=== PATIENT | female | born 1980 | race Caucasian/White ===

== ENCOUNTER 2017-03-10 08:36 | Emergency (ER) | payer OTHER ==
[2017-03-10 09:27] VITALS: BP 124/74
--- NOTE | 2017-03-10 10:24 | UC ---
General HPI - HPI Summary HPI Summary: complaint of being bit by a bug in the garden yesterday on her forehead had a itchy red lump yesterday this morning swelling in her foerhead has increased and is painful took some benadryl without relief slight headache denies fever last tetanus 2005 - History of Current Complaint Chief Complaint: UCSkin Stated Complaint: BUG BITE REACTION Time Seen by Provider: 03/10/17 10:17 Hx Obtained From: Patient - Allergy/Home Medications Allergies/Adverse Reactions: Allergies Allergy/AdvReac Type Severity Reaction Status Date / Time No Known Allergies Allergy Verified 01/08/16 15:37 PMH/Surg Hx/FS Hx/Imm Hx Previously Healthy: Yes Endocrine History Of: Denies: Diabetes, Thyroid Disease, Hyperthyroidism, Hypothyroidism, Dyslipidemia Cardiovascular History Of: Denies: Cardiac Disorders, Hypertension, Pacemaker/ICD, Myocardial Infarction , Congestive Heart Failure, Atrial Fibrillation, Deep Vein Thrombosis, Bleeding Disorders Respiratory History Of: Denies: COPD, Asthma, Bronchitis, Pneumonia, Pulmonary Embolism GI/ History Of: Denies: Gastroesophageal Reflux, Ulcer, Gastrointestinal Bleed, Gall Bladder Disease, Kidney Stones, Diverticulitis, Renal Disease, Urosepsis Neurological History Of: Denies: TIA, CVA, Dementia, Seizures, Migraine Psychological History Of: Denies: Anxiety, Depression, Bipolar Disorder, Schizophrenia, Post Traumatic Stress Disorder Cancer History Of: Denies: Lung Cancer, Colorectal Cancer, Breast Cancer, Prostate Cancer, Cervical Cancer Other History Of: Negative For: HIV, Hepatitis B, Hepatitis C, Anticoagulant Therapy - Surgical History Surgical History: Yes Surgery Procedure, Year, and Place: breast surgery. choley. vascular surgery R arm - Family History Known Family History: Negative: Cardiac Disease, Hypertension, Diabetes - Social History Occupation: Unemployed Lives: With Family Alcohol Use: None Substance Use Type: None Smoking Status (MU): Heavy Every Day Tobacco Smoker Type: Cigarettes Amount Used/How Often: 1 PPD Household Exposure Type: Cigarettes Cessation Counseling: Patient Advised to Stop Review of Systems Constitutional: Negative Skin: Other - swelkling in foerhead Eyes: Negative ENT: Negative Respiratory: Negative Cardiovascular: Negative Gastrointestinal: Negative Genitourinary: Negative Motor: Negative Neurovascular: Negative Musculoskeletal: Negative Neurological: Headache Psychological: Negative All Other Systems Reviewed And Are Negative: Yes Physical Exam Triage Information Reviewed: Yes Appearance: No Pain Distress, Well-Nourished Vital Signs: Initial Vital Signs Temp 98.3 F 03/10/17 09:23 Pulse 62 03/10/17 09:23 Resp 16 03/10/17 09:23 BP 124/74 03/10/17 09:23 Pulse Ox 100 03/10/17 09:23 Vital Signs Reviewed: Yes Eyes: Positive: Conjunctiva Clear ENT: Positive: Pharynx normal, TMs normal Neck: Positive: No Lymphadenopathy Respiratory: Positive: Lungs clear, Normal breath sounds, No respiratory distress Cardiovascular: Positive: RRR, No Murmur, Pulses Normal Abdomen Description: Positive: Nontender, Soft Bowel Sounds: Positive: Present Musculoskeletal: Positive: No Edema Neurological: Positive: Alert Psychological Exam: Normal Skin: Positive: Other - forehead- 4x3cm area of erythema- warm to touch Course/Dx - Course Course Of Treatment: exam completed. will start bactrim and give tetanus. has followup with PCP tomorrow - Differential Dx - Multi-Symptom Provider Diagnoses: cellultis Discharge - Discharge Plan Condition: Stable Disposition: HOME Prescriptions: Sulfamethox/Trimethoprim DS* [Bactrim DS 800/160 TAB*] 1 tab PO BID #14 tab Patient Education Materials: Cellulitis (ED) Referrals: No Primary Care Phys,NOPCP [Primary Care Provider] - eVra Simpson MD [Medical Doctor] - Additional Instructions: Please take antibiotic as directed Increase fluids and rest Take acetaminophen or ibuprofen for fever or pain If area of redness or pain increases or you get a fever please see you primary care provider or urgent care Please review your discharge instructions. If your symptoms do not improve please call your primary care provider or return to urgent care. Your blood pressure is pre-hypertensive reading. Please contact your primary care provider within 1 day -4 weeks for further evaluation
[2017-03-10] MEDS ORDERED: Tetan/Diph/Pertus SYR(Tdap)* 0.5 ML SYR(BOOSTRIX) use SYR IM ONE (10:26)
== END 2017-03-10 10:32 | disposition home or self-care (01) ==
LOC: UCEAST 08:36
DX: L03.211 Cellulitis of face (principal); F17.210 Nicotine dependence, cigarettes, uncomplicated
CPT/HCPCS: 90471; 90715; 99212; G0463

== ENCOUNTER 2019-01-03 12:03 | Emergency (ER) | payer OTHER ==
[2019-01-03 12:14] VITALS: BP 140/87
--- NOTE | 2019-01-03 12:32 | UC ---
Back Pain HPI - HPI Summary HPI Summary: Patient is a 38 year old , who present today to the urgent care with low back pain for past 2 days. She reports that she picked water at work on January 01 at around 2 PM and that started her pain. The following day she tried to lift the garbage for her neighbor and that made it even worse. Was not able to sleep at all last night She took 200 mg of ibuprofen but without much relief. She does have a history of prior low back pain intermittently for a long time and had an episode of sciatica on the left side 3 weeks ago which has resolved completely and this episode does not feel like any sciatica-like symptoms. She has never seen anyone for her back pain in the past. Her pain is localized in the mid lower back, denies any radiation down her leg. Denies any numbness , tingling , incontinence, saddle anesthesia , motor or sensory disturbance. - History of Current Complaint Chief Complaint: UCBackPain Stated Complaint: BACK PAIN Time Seen by Provider: 01/03/19 12:14 Hx Obtained From: Patient Hx Last Menstrual Period: now ?: No - LMP 6 days ago Pain Intensity: 7 - Allergies/Home Medications Allergies/Adverse Reactions: Allergies Allergy/AdvReac Type Severity Reaction Status Date / Time No Known Allergies Allergy Verified 01/03/19 12:14 PMH/Surg Hx/FS Hx/Imm Hx - Additional Past Medical History Additional PMH: Back pain Previously Healthy: Yes Other History Of: Negative For: HIV, Hepatitis B, Hepatitis C, Anticoagulant Therapy - Surgical History Surgical History: Yes Surgery Procedure, Year, and Place: Breast surgery x 3. Gallbladder. Vascular surgery Right arm - Family History Known Family History: Negative: Cardiac Disease, Hypertension, Diabetes - Social History Alcohol Use: None Substance Use Type: None Smoking Status (MU): Heavy Every Day Tobacco Smoker Type: Cigarettes Amount Used/How Often: 1 PPD Household Exposure Type: Cigarettes Review of Systems All Other Systems Reviewed And Are Negative: Yes Constitutional: Positive: Negative Skin: Positive: Negative Eyes: Positive: Negative ENT: Positive: Negative Respiratory: Positive: Negative Cardiovascular: Positive: Negative Gastrointestinal: Positive: Negative Genitourinary: Positive: Negative Motor: Positive: Negative Neurovascular: Positive: Negative Musculoskeletal: Positive: Arthralgia - Lumbar spine, Decreased ROM - Spine, Myalgia - Low back Neurological: Positive: Negative Psychological: Positive: Negative Is Patient Immunocompromised?: No Physical Exam - Summary Physical Exam Summary: Physical Exam: Const: Appears well. No signs of apparent distress present. Alert and oriented x 3. Musculo: Walks with a cautious gait Head/Face: Atraumatic, normocephalic on inspection. Eyes: EOMI and PERRLA in both eyes. Conjunctivae clear. No discharge noted ENT: Hearing normal CVS: Regular rate and Rhythm, S1S2 normal , no murmurs identified. Extremities: Peripheral circulation is grossly normal. Pulses 2+ Abdomen : Soft non tender , nondistended , Bowel sounds present . No guarding , rebound tenderness or rigidity noted. Skin: No lesions or rash located on the upper extremities or on the lower extremities. Neuro: Cranial nerves II to XII intact, motor and sensory intact. DTR Intact bilaterally. Mood is normal. Affect is normal. Hip/ Spine: Spine: There is tenderness to palpation in midline at L3-L4 and L4-L5. There is no paraspinal tenderness noted bilaterally. Stability: No obvious instability. Strength: 5/5 ROM: Limited and painful range of motion in all planes Special Tests: Straight leg raise could not be performed that she cannot lay down operatively. Slump test negative bilaterally. Hip: Insp/Palp: Normal to inspection and palpation. Strength: 5/5 bilaterally. Normal muscle tone bilaterally. ROM: Bilateral hips: full ROM Neuro: Sensation intact to light touch. Motor and sensory intact. Reflexes: Left DTR's are intact. Right DTR's are intact. Toes downgoing. Coordination normal. Distal pulses intact. Triage Information Reviewed: Yes Vital Signs: Initial Vital Signs Temp 98.7 F 01/03/19 12:11 Pulse 68 01/03/19 12:11 Resp 12 01/03/19 12:11 BP 140/87 01/03/19 12:11 Pulse Ox 98 01/03/19 12:11 Vital Signs Reviewed: Yes Diagnostics - Radiology No standard instances Radiology Interpretation Completed By: Radiologist - Xrays Lumbar spine: facet osteoarthritis most pronounced at L4-L5 and L5-S1 There is loss of intervertebral disc height most pronounced at the thoracolumbar junction at L5- S1.IMPRESSION: DEGENERATIVE DISC DISEASE AND OSTEOARTHRITIS MOST PRONOUNCED ALONG THE LOWER LUMBAR SPINE AND THORACOLUMBAR JUNCTION Back Pain Course/Dx - Course Course Of Treatment: During the visit today, we obtained lumbar spine x-rays:Xrays Lumbar spine: facet osteoarthritis most pronounced at L4-L5 and L5-S1 There is loss of intervertebral disc height most pronounced at the thoracolumbar junction at L5- S1.IMPRESSION: DEGENERATIVE DISC DISEASE AND OSTEOARTHRITIS MOST PRONOUNCED ALONG THE LOWER LUMBAR SPINE AND THORACOLUMBAR JUNCTION We discussed the findings which are consistent with osteoarthritis / degenerative changes flareup. No red flags to indicate any disc injury. She was given 1 dose of ibuprofen here. . I will prescribe the pain medication and muscle relaxant to the pharmacy . She will follow with her primary care doctor within a week. She understands that she needs physical therapy and we'll get the prescription from her primary care doctor. Patient expressed understanding . - Differential Dx/Diagnosis Provider Diagnosis: Osteoarthritis of lumbar spine, Low back strain Discharge - Sign-Out/Discharge Documenting (check all that apply): Patient Departure All imaging exams completed and their final reports reviewed: Yes - Discharge Plan Condition: Stable Disposition: HOME Prescriptions: Cyclobenzaprine TAB* [Flexeril 10 MG TAB*] 10 mg PO BID PRN 10 Days #20 tab MDD 2 PRN Reason: Spasms Meloxicam 7.5 mg PO BID PRN 15 Days #30 tablet MDD 2 tab PRN Reason: Pain Patient Education Materials: Low Back Strain (ED), Core Strengthening Exercises (GEN), Lower Back Exercises (ED) Referrals: No Primary Care Phys,NOPCP [Primary Care Provider] - Additional Instructions: Please start taking the medication as prescribed to the pharmacy for pain control. Stay active, avoid complete bedrest Follow up with your primary care doctor in 1 week at [facility]. Patients blood pressure slightly high in Urgent care today , plan follow up with PCP for better control Return to Urgent care / ER if symptoms get worse. - Billing Disposition and Condition Condition: STABLE Disposition: Home
[2019-01-03] MEDS ORDERED: Ketorolac INJ* 30 MG/ML 1 ML VIAL IM ONE (12:42)
[2019-01-03] MEDS ORDERED: Ibuprofen TAB* 600 MG PO ONE (13:10)
== END 2019-01-03 13:51 | disposition home or self-care (01) ==
LOC: UCEAST 12:03
DX: M47.896 Other spondylosis, lumbar region (principal); S39.012A Strain of muscle, fascia and tendon of lower back, initial encounter; F17.210 Nicotine dependence, cigarettes, uncomplicated; X58.XXXA Exposure to other specified factors, initial encounter; Y92.9 Unspecified place or not applicable; Y99.0 Civilian activity done for income or pay
CPT/HCPCS: 72110; 99212; A9270-GY; G0463; J1885

== ENCOUNTER 2019-07-28 09:57 | Emergency (ER) | payer OTHER ==
[2019-07-28 10:07] VITALS: BP 121/73
--- NOTE | 2019-07-28 10:46 | UC ---
FLU HPI - HPI Summary HPI Summary: Patient is a 39yo female presenting with cough, nasal congestion, and body aches x4 days. States her symptoms have only worsened since onset. Notes ear pressure, sore throat, and productive cough. States her neck and shoulders ache and her "legs feel like jelly." Denies SOB and wheezing. Denies n/v/d and abdominal pain. Notes chills and subjective fevers. Notes ill contacts where she works at [employer]. - History of Current Complaint Chief Complaint: UCRespiratory Stated Complaint: RESP ISSUE COUGH BODYACHES Hx Obtained From: Patient Hx Last Menstrual Period: 07/04/19 Onset/Duration: Gradual Onset, Lasting Days Severity Currently: Mild Severity Initially: Moderate Pain Intensity: 6 Pain Scale Used: 0-10 Numeric - Allergy/Home Medications Allergies/Adverse Reactions: Allergies Allergy/AdvReac Type Severity Reaction Status Date / Time No Known Allergies Allergy Verified 07/28/19 10:07 Home Medications: Home Medications NK [No Home Medications Reported] 07/28/19 [History Confirmed 07/28/19] PMH/Surg Hx/FS Hx/Imm Hx Other History Of: Negative For: HIV, Hepatitis B, Hepatitis C, Anticoagulant Therapy - Surgical History Surgical History: Yes Surgery Procedure, Year, and Place: Breast surgery x 3. Gallbladder. Vascular surgery Right arm - Family History Known Family History: Negative: Cardiac Disease, Hypertension, Diabetes - Social History Alcohol Use: None Substance Use Type: None Smoking Status (MU): Heavy Every Day Tobacco Smoker Type: Cigarettes Amount Used/How Often: 1 PPD Household Exposure Type: Cigarettes Review of Systems All Other Systems Reviewed And Are Negative: Yes Constitutional: Positive: Fever, Chills, Fatigue Skin: Positive: Negative Eyes: Positive: Eye Redness ENT: Positive: Sore Throat, Ear Ache, Sinus Congestion Respiratory: Positive: Cough. Negative: Shortness Of Breath Cardiovascular: Positive: Negative. Negative: Palpitations, Chest Pain Gastrointestinal: Positive: Negative. Negative: Abdominal Pain, Vomiting, Diarrhea, Nausea Motor: Positive: Negative Neurovascular: Positive: Negative Musculoskeletal: Positive: Negative, Arthralgia, Myalgia. Negative: Decreased ROM, Edema Neurological: Positive: Headache. Negative: Paresthesia, Numbness Physical Exam Triage Information Reviewed: Yes Appearance: No Pain Distress, Well-Nourished, Ill-Appearing Vital Signs: Initial Vital Signs Temp 98 F 07/28/19 10:03 Pulse 70 07/28/19 10:03 Resp 17 07/28/19 10:03 BP 121/73 07/28/19 10:03 Pulse Ox 100 07/28/19 10:03 Lab Results 07/28/19 Range/Units 10:42 Group A Strep Rapid Negative (Negative) Lab Results 07/28/19 07/28/19 Range/Units 10:42 10:44 Influenza A (Rapid) Negative (Negative) Influenza B (Rapid) Negative (Negative) Group A Strep Rapid Negative (Negative) Vital Signs Reviewed: Yes Eyes: Positive: Conjunctiva Inflamed ENT: Positive: Hearing grossly normal, Pharyngeal erythema, Nasal congestion, TMs normal, Tonsillar swelling, Uvula midline. Negative: Nasal drainage, TM bulging, TM dull, TM red, Tonsillar exudate, Trismus, Muffled voice, Hoarse voice, Sinus tenderness Neck exam: Normal Neck: Positive: Supple, Nontender, No Lymphadenopathy Respiratory Exam: Normal Respiratory: Positive: Lungs clear, Normal breath sounds, No respiratory distress, No accessory muscle use. Negative: Crackles, Rhonchi, Stridor, Wheezing Cardiovascular Exam: Normal Cardiovascular: Positive: RRR Neurological: Positive: Alert Psychological: Positive: Age Appropriate Behavior Skin Exam: Normal Flu Course/Dx - Course Course Of Treatment: Discussed negative strep and flu tests with the patient and that her symptoms are most likely of viral etiology. Instructed patient to continue symptomatic treatment with otc cold medications. Instructed her to get plenty of rest and fluids and to follow up with PCP if symptoms persist. Patient voiced understanding and agreed to the treatment plan. - Differential Dx/Diagnosis Provider Diagnosis: Viral syndrome Discharge ED - Sign-Out/Discharge Documenting (check all that apply): Patient Departure All imaging exams completed and their final reports reviewed: No Studies - Discharge Plan Condition: Stable Disposition: HOME Referrals: Vera Simpson MD [Primary Care Provider] - If Needed Additional Instructions: As discussed, your rapid strep and flu tests were negative today. You may take mucinex as prescribed to help reduce your mucus production. You may continue to take over the counter cough and cold medications for symptomatic relief. You may take ibuprofen as directed for pain relief. Get plenty of rest and fluids. Return or follow up with your primary care doctor if your symptoms worsen or do not resolve within 7 days. - Billing Disposition and Condition Condition: STABLE Disposition: Home
[2019-07-28 10:58] LABS: Influenza A Molecular NEGATIVE (Negative); Influenza B Molecular NEGATIVE (Negative)
== END 2019-07-28 11:13 | disposition home or self-care (01) ==
LOC: UCEAST 09:57
DX: B34.9 Viral infection, unspecified (principal); F17.210 Nicotine dependence, cigarettes, uncomplicated
CPT/HCPCS: 87651; 99211; G0463

== ENCOUNTER 2019-08-14 16:23 | Emergency (ER) | payer OTHER ==
[2019-08-14 16:37] VITALS: BP 130/74
--- NOTE | 2019-08-14 16:59 | UC ---
Throat Pain/Nasal Nas HPI - HPI Summary HPI Summary: 39 y/o female presents to the urgent care c/o nasal congestion w/ now green nasal discharge, moderate PND for the past 3 weeks. Pt reports symptoms started w/the common cold and has worsen w/ the days. Now w/ a productive cough w/ green phlegm. Worse at night time. She has been taken Mucinex and other OTC decongestants w/o any improvement. Symptoms worsen this past week w/ sore throat and she noticed some white spots on her throat. Her daughter DX 3 days ago w/ strep pharyngitis. She has been coughing so much that she feels some "bumps" in her throat. Pain w/ swallowing is 5/10 associated w/ sinus pain and B /L ear pressure. Pt denies fever, SOB, wheezing, chest pain, abdominal pain, dizziness, N/V/D. - History of Current Complaint Chief Complaint: UCRespiratory Stated Complaint: ST Time Seen by Provider: 08/14/19 16:58 Hx Obtained From: Patient Hx Last Menstrual Period: one week ago ?: No Onset/Duration: Gradual Onset, Lasting Weeks - 3 weeks nasal congestion w/ green nasal sicharge w/ cough, Still Present, Worse Since - 1 week Severity: Moderate Pain Intensity: 4 - sore throat and sinus pain Pain Scale Used: 0-10 Numeric Cough: Sputum Appears - green Associated Signs & Symptoms: Positive: Sinus Discomfort, Nasal Discharge - green. Negative: Dysphagia, Wheezing, Fever, Rash - Epiglottits Risk Factors Epiglottis Risk Factors: Negative - Allergies/Home Medications Allergies/Adverse Reactions: Allergies Allergy/AdvReac Type Severity Reaction Status Date / Time No Known Allergies Allergy Verified 08/14/19 16:37 Home Medications: Home Medications Ibuprofen 400 mg PO ONCE PRN 08/14/19 [History Confirmed 08/14/19] PMH/Surg Hx/FS Hx/Imm Hx Previously Healthy: Yes - Pt denies PMHX Other History Of: Negative For: HIV, Hepatitis B, Hepatitis C, Anticoagulant Therapy - Surgical History Surgical History: Yes Surgery Procedure, Year, and Place: Breast surgery x 3. Gallbladder. Vascular surgery Right arm - Family History Known Family History: Positive: None - Pt denies PMHX Negative: Cardiac Disease, Hypertension, Diabetes - Social History Occupation: Employed Full-time Lives: With Family Alcohol Use: None Substance Use Type: None Smoking Status (MU): Heavy Every Day Tobacco Smoker Type: Cigarettes Amount Used/How Often: 1/2 PPD Household Exposure Type: Cigarettes Review of Systems All Other Systems Reviewed And Are Negative: Yes Constitutional: Positive: Negative Skin: Positive: Negative Eyes: Positive: Negative ENT: Positive: Sore Throat, Nasal Discharge - green, Sinus Congestion, Sinus Pain/Tenderness, Other - moderate green PND Respiratory: Positive: Cough - productive Cardiovascular: Positive: Negative Gastrointestinal: Positive: Negative Genitourinary: Positive: Negative Motor: Positive: Negative Neurovascular: Positive: Negative Neurological: Positive: Negative Psychological: Positive: Negative Is Patient Immunocompromised?: No Physical Exam - Summary Physical Exam Summary: Vitals: reviewed General: Well developed, well-nourished female patient with NAD. Head and face: Normocephalic and atraumatic, Positive tenderness over the frontal and maxillary sinuses.. Eyes: PERRLA, EOMI x 2. Normal conjunctiva. No eye discharge. ENT: Ears and TM with normal limits. Nose: edematous and erythematous nasal mucosa with with yellowish discharge and erythematous mucosa. Pharynx with erythema, no exudate. yellowish PND Neck: Supple, no JVD, no carotid bruits and no lymphadenopathy. Lungs: clear, no rales, no rhonchi, no wheezes. CVS: RRR, S1 and S2 present no murmurs or gallops appreciated. Abdomen: soft nontender with positive bowel sounds. Extremities: no edema noted. Neuro: WNL. Skin: warm and dry Triage Information Reviewed: Yes Vital Signs: Initial Vital Signs Temp 97.8 F 08/14/19 16:32 Pulse 67 08/14/19 16:32 Resp 18 08/14/19 16:32 BP 130/74 08/14/19 16:32 Pulse Ox 100 08/14/19 16:32 Throat Pain/Nasal Course/Dx - Course Course Of Treatment: 39 y/o female presents to the urgent care c/o nasal congestion w/ now green nasal discharge, moderate PND for the past 3 weeks. Pt reports symptoms started w/the common cold and has worsen w/ the days. Now w/ a productive cough w/ green phlegm. Worse at night time. She has been taken Mucinex and other OTC decongestants w/o any improvement. Symptoms worsen this past week w/ sore throat and she noticed some white spots on her throat. Her daughter DX 3 days ago w/ strep pharyngitis. She has been coughing so much that she feels some "bumps" in her throat. Pain w/ swallowing is 5/10 associated w/ sinus pain and B /L ear pressure. Pt denies fever, SOB, wheezing, chest pain, abdominal pain, dizziness, N/V/D. Hx obtained. Pt w/ acute bacterial sinusitis and pharyngitis on examination. Rapid strep: negative. Pt with 3 weeks of symptoms getting worse. Pt Rx Amoxicillin PO and flonase nasal spray. Tessalon PO for cough. Discharge instructions explained to Pt. Advised to Return to the clinic or PCP in 3 days if symptoms do not improve.D/C instructions explained. Pt understood and agreed with plan of care. - Differential Dx/Diagnosis Differential Diagnosis/HQI/PQRI: Influenza, Laryngitis, Mononucleosis, Otitis Media, Pharyngitis, Sinusitis, Tonsillitis, URI Provider Diagnosis: Acute bacterial sinusitis, Cough Discharge ED - Sign-Out/Discharge Documenting (check all that apply): Patient Departure - D/C home All imaging exams completed and their final reports reviewed: No Studies - Discharge Plan Condition: Stable Disposition: HOME Prescriptions: Amoxicillin PO (*) [Amoxicillin 875 MG (*)] 875 mg PO BID #20 tab Benzonatate CAP* [Tessalon 100 MG CAP*] 100 mg PO TID PRN #21 cap PRN Reason: Cough Fluticasone NASAL SPRAY 50MCG* [Flonase NASAL SPRAY 50MCG*] 2 spray BOTH NARES DAILY #1 btl Patient Education Materials: Sinusitis (ED) Referrals: Vera Simpson MD [Primary Care Provider] - 3 Days Additional Instructions: 1- Please increase fluid intake and rest. take full course of antibiotics to avoid resistance. Take yogurts w/ probiotics or Culturelle to protect your GI system 2-Use Flonase as directed to help drain fluid. Also buy saline drops to clear sinuses 3-Take Tessalon tabs PO to alleviate cough 4-Please f/u w/ your PCP in 3 days if symptoms do not improve for further management and treatment - Billing Disposition and Condition Condition: STABLE Disposition: Home - Attestation Statements Provider Attestation: This patient was not seen by me. I reviewed the chart. I was available for consult.MULU
== END 2019-08-14 17:50 | disposition home or self-care (01) ==
LOC: UCEAST 16:23
DX: J01.90 Acute sinusitis, unspecified (principal); B96.89 Other specified bacterial agents as the cause of diseases classified elsewhere; F17.210 Nicotine dependence, cigarettes, uncomplicated; R05 Cough
CPT/HCPCS: 87651; 99212; G0463